=== PATIENT | male | born 1965 | race Caucasian/White ===

== ENCOUNTER 2024-12-05 16:55 | Emergency (ER) | payer OTHER, SELFPAY ==
[2024-12-05 16:58] VITALS: BP 100/72; PULSE 98; TEMP 36.4; O2SAT 97; BMI 21.0
--- NOTE | 2024-12-05 17:26 | ED.GENADUL1 ---
HPI HPI - General Adult General Chief complaint: Back Pain/Injury Stated complaint: LOWER BACK PAIN Time Seen by Provider: 12/05/24 16:57 Source: patient Mode of arrival: Wheelchair Limitations: no limitations History of Present Illness HPI narrative: 59-year-old male presents to the emergency department for lower back pain. He states he has had this for several days and there was no injury. He drinks alcohol on a daily basis. He has been using a heating pad and noticed that he has some sores in his right superior medial buttock area. He has never had shingles. No dysuria or hematuria. He had back surgery years ago. Related Data Previous Rx's ?Medication ?Instructions ?Recorded gabapentin 100 mg capsule 100 mg PO BID #20 caps 12/05/24 valacyclovir 1 gram tablet 1,000 mg PO Q8H 7 days #21 tabs 12/05/24 (Valtrex) Allergies Allergy/AdvReac Type Severity Reaction Status Date / Time No Known Drug Allergies Allergy Verified 12/05/24 17:01 Opioid HPI Opioid Management Most Recent Opioid Data: Last Pain Scale 8 12/05/24 17:50 12/05/24 Review of Systems ROS Narrative A ten point review of systems is negative except as noted above. PFSH PFSH Social History Little interest or pleasure in doing things: not at all Feeling down, depressed, or hopeless: not at all Exam Narrative Exam Narrative: Nurses note and vital signs reviewed and patient is not hypoxic. General: The patient appears in no apparent distress. Patient is unkempt. Skin: Warm, dry, no pallor noted. There are 3 erythematous areas of rash presents on the right superior medial buttock region. No drainage or abscess present. Head: Normocephalic, atraumatic Eye: Normal conjunctiva, no drainage Ears, Nose, Mouth, and Throat: oral mucosa is moist. Nares patent. Cardiovascular: Regular Rate and Rhythm Respiratory: Patient is in no distress, no accessory muscle use, lungs are clear to auscultation, no wheezing, rales or rhonchi Back: non-tender to palpation including the lumbar area GI: Soft and nontender Musculoskeletal: The patient has no evidence of calf tenderness, no pitting edema, symmetrical pulses noted bilaterally Neurological: A&O, normal speech Psychiatric: Cooperative Constitutional Vital Signs, click to edit/add: Last Vital Signs Temp 97.6 F 12/05/24 16:58 Pulse 105 H 12/05/24 21:00 Resp 20 12/05/24 21:00 BP 137/96 H 12/05/24 21:00 Pulse Ox 95 12/05/24 21:00 O2 Del Method Room Air 12/05/24 21:00 Course Course Hospital Course: Patient was given Tylenol 3 by my colleague. 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 I also endorsed that he has shingles. Patient received gabapentin 200 mg and Valtrex 1000 mg emergent Portillo. Vital Signs Vital signs: Vital Signs Temperature 97.6 F 12/05/24 16:58 Pulse Rate 98 H 12/05/24 16:58 Respiratory Rate 18 12/05/24 16:58 Blood Pressure 100/72 12/05/24 16:58 Pulse Oximetry 97 12/05/24 16:58 Oxygen Delivery Method Room Air 12/05/24 16:58 Temperature 97.6 F 12/05/24 16:58 Pulse Rate 105 H 12/05/24 21:00 Respiratory Rate 20 12/05/24 21:00 Blood Pressure 137/96 H 12/05/24 21:00 Pulse Oximetry 95 12/05/24 21:00 Oxygen Delivery Method Room Air 12/05/24 21:00 Medical Decision Making MDM Narrative Medical decision making narrative: I suspect that he has shingles due to the nature of the rash. X-ray and urinalysis are ordered and pending and the patient is signed out to Dr. Sultana at change of shift. Differential Diagnosis Differential Diagnosis: Muscle strain, shingles Discharge Plan Discharge Chief Complaint: Back Pain/Injury Clinical Impression: Shingles, Acute lumbar back pain, Neuropathy Patient Disposition: Home, Self-Care Time of Disposition Decision: 20:33 Condition: Good Prescriptions / Home Meds: New valacyclovir [Valtrex] 1 gram tablet 1,000 mg PO Q8H 7 Days Qty: 21 0RF gabapentin 100 mg capsule 100 mg PO BID Qty: 20 0RF Print Language: Luxembourgish Instructions: Shingles (ED), Acute Low Back Pain (ED), Peripheral Neuropathy (ED) Referrals: NASREEN MELÉNDEZ [Physician] - 1 week Discharge Date/Time: 12/05/24 21:00
[2024-12-05] MEDS: KETOROLAC TROMETHAMINE 60 MG/2 ML VIAL IM (17:44)
--- NOTE | 2024-12-05 17:45 | XR_ITS ---
The [address] [address] Patient Name: MARSHA BOLANOS MRN: [id number] date: 1965 Sex: M Assigned Patient Location: ED.MAIN Current Patient Location: ER Accession/Order Number: [id number] Exam Date: 12/05/2024 18:15 Report Date: 12/05/2024 19:34 At the request of: AAMIR BALDREAS Procedure: XR lumbar spine 2-3V EXAM: XR lumbar spine 2-3V HISTORY: The patient is a 59-year-old male, Atraumatic pain COMPARISON: None. FINDINGS: There is no radiographic evidence of fracture or loss of vertebral body height throughout the lumbar spine. There is no malalignment. The sacroiliac joints are maintained. There is severe narrowing of the L5-S1 disc and moderate narrowing of the L4-L5 discs. The widths of the upper lumbar discs are maintained. XR/XR lumbar spine 2-3V IMPRESSION: Degenerative disc disease of the lower lumbar spine. Electronically authenticated by: CHAPARRO HILL Date: 12/05/2024 19:34
[2024-12-05] MEDS: ACETAMINOPHEN 300 MG/ 30 MG CODEINE TABLET 1 TAB PO (19:04)
--- NOTE | 2024-12-05 20:23 | ED.GENADUL1 ---
HPI HPI - General Adult General Chief complaint: Back Pain/Injury Stated complaint: LOWER BACK PAIN Time Seen by Provider: 12/05/24 16:57 Source: patient Mode of arrival: Wheelchair Limitations: no limitations History of Present Illness HPI narrative: Gentleman is a 59-year-old male signed out to my colleague at 7 PM and I assumed care of the patient. Patient presented to the emergency department with left lower back pain. Has been using heating pad for it. Patient had lumbar x-ray series interpreted by board-certified radiologist and were found to be unremarkable. He was pending a urine but the patient has not urinated while he was in the emergency department. 20:43 I going to do a repeat physical exam on this patient. 1. The patient complains of his legs feeling like they are asleep. This has been going on for some time . Patient is known to drink alcohol. 2. Patient states that he has not had his prescriptions for his seizures or any of his other medical problems in greater than 3 months. He stated his primary care physician moved and he does not have a primary care practitioner. 3. Patient indicates he lives in chronic pain and uses alcohol to manage his pain. He has been using a heating pad on his back that has not helped. He states the pain is worse when he walks. Relieved by nothing. Related Data Previous Rx's ?Medication ?Instructions ?Recorded gabapentin 100 mg capsule 100 mg PO BID #20 caps 12/05/24 valacyclovir 1 gram tablet 1,000 mg PO Q8H 7 days #21 tabs 12/05/24 (Valtrex) Allergies Allergy/AdvReac Type Severity Reaction Status Date / Time No Known Drug Allergies Allergy Verified 12/05/24 17:01 Opioid HPI Opioid Management Most Recent Opioid Data: Last Pain Scale 8 12/05/24 17:50 12/05/24 Review of Systems ROS Status of ROS 10 or more systems reviewed and unremarkable except as noted in history and below PFSH PFSH Social History Little interest or pleasure in doing things: not at all Feeling down, depressed, or hopeless: not at all Exam Narrative Exam Narrative: I did a focused neurologic and skin assessment on the patient. The skin on the patient's left side around L5-S1 on the left side definitively there are 3 dried patches on a deep erythematous base. It was very painful to light touch. He is hyperesthetic in that area. No evidence of any fluctuance. No well-defined border of redness. Constitutional Vital Signs, click to edit/add: Last Vital Signs Temp 97.6 F 12/05/24 16:58 Pulse 98 H 12/05/24 16:58 Resp 18 12/05/24 16:58 BP 100/72 12/05/24 16:58 Pulse Ox 97 12/05/24 16:58 O2 Del Method Room Air 12/05/24 16:58 Neuro Ramón Coma Scale: document GCS findings Common normals: oriented x3, CN's II-XII intact bilaterally, moves all extremities, no focal motor deficits and deep tendon reflexes 2+ bilaterally Sensorium/orientation: awake, alert, oriented to person, oriented to place, oriented to time and other (Patient has admittedly drink alcohol but is highly functioning at this time) Meningeal signs: no meningeal signs Cranial nerves: CN normal except as noted Speech: speech normal Sensory exam: extremities (Patient is hyperesthetic in his distal lower extremities. Ascending improve) Motor exam: strength 5/5 throughout Deep tendon reflexes: Rt Patellar (L4): 2+, Lt Patellar (L4): 2+, Rt Ankle (S1): 2+ and Lt Ankle (S1): 2+ Course Course Hospital Course: Patient was given Tylenol 3 by my colleague. 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 I also endorsed that he has shingles. Patient received gabapentin 200 mg and Valtrex 1000 mg emergent Bandar. Vital Signs Vital signs: Vital Signs Temperature 97.6 F 12/05/24 16:58 Pulse Rate 98 H 12/05/24 16:58 Respiratory Rate 18 12/05/24 16:58 Blood Pressure 100/72 12/05/24 16:58 Pulse Oximetry 97 12/05/24 16:58 Oxygen Delivery Method Room Air 12/05/24 16:58 Temperature 97.6 F 12/05/24 16:58 Pulse Rate 98 H 12/05/24 16:58 Respiratory Rate 18 12/05/24 16:58 Blood Pressure 100/72 12/05/24 16:58 Pulse Oximetry 97 12/05/24 16:58 Oxygen Delivery Method Room Air 12/05/24 16:58 Medical Decision Making MDM Narrative Medical decision making narrative: Patient at this time needs to reestablish primary care. A list was provided for him. The patient will have his prescriptions for shingles and neuropathy called in. Differential Diagnosis Differential Diagnosis: Shingles, fracture, urinary tract infection, chronic pain, neuropathy Medical Records Medical records reviewed: Yes I reviewed the patient's medical records Lab Data Lab results reviewed: Yes I reviewed the patient's lab results Imaging Data Chest x-ray: Radiologist's impression: ITS Impressions Lumbar Spine X-Ray 12/05/24 17:45 IMPRESSION: Degenerative disc disease of the lower lumbar spine. Electronically authenticated by: CHAPARRO HILL Date: 12/05/2024 19:34 Discharge Plan Discharge Chief Complaint: Back Pain/Injury Clinical Impression: Shingles, Acute lumbar back pain, Neuropathy Patient Disposition: Home, Self-Care Time of Disposition Decision: 20:33 Condition: Good Prescriptions / Home Meds: New valacyclovir [Valtrex] 1 gram tablet 1,000 mg PO Q8H 7 Days Qty: 21 0RF gabapentin 100 mg capsule 100 mg PO BID Qty: 20 0RF Print Language: American Instructions: Shingles (ED), Acute Low Back Pain (ED), Peripheral Neuropathy (ED) Referrals: NASREEN MELÉNDEZ [Physician] - 1 week
[2024-12-05] MEDS: VALACYCLOVIR HCL 500 MG TABLET 1000 MG PO (20:50)
[2024-12-05] MEDS: GABAPENTIN 100 MG CAPSULE 200 MG PO (20:50)
[2024-12-05 21:00] VITALS: BP 137/96; PULSE 105; O2SAT 95
== END 2024-12-05 21:00 | disposition home or self-care (01) ==
PROVIDERS: Emergency Provider Emergency Medicine
DX: M54.50 Low back pain, unspecified (principal); B02.9 Zoster without complications; G62.9 Polyneuropathy, unspecified; M51.369 Other intervertebral disc degeneration, lumbar region without mention of lumbar back pain or lower extremity pain
CPT/HCPCS: 72100; 81001; 99284; J1885

== ENCOUNTER 2025-03-04 19:49 | Emergency (ER) | payer SELFPAY ==
[2025-03-04] VITALS (29 sets, daily range): BP systolic 138–158; BP diastolic 90–107; PULSE 102–143; TEMP 36.9; O2SAT 91–97; BMI 21.7
--- OUTSIDE RECORDS SUMMARY | 2025-03-04 19:57 | XMS_ITS | CCD ---
Author Organization [facility] Medications Current Medications Medication Drug Class(es) Dates Sig (Normalized) Sig (Original) folic acid 1 mg oral tablet (1 source) Start: 02-17-2024 take 1 mg by mouth once daily Folic Acid Active 1 MG PO Daily February 17, 2024 12:00am furosemide 40 mg oral tablet (1 source) Loop Diuretic Start: 02-17-2024 take 40 mg by mouth once daily Furosemide Active 40 MG PO Daily February 17, 2024 12:00am lactulose 667 mg/ml oral solution (1 source) Osmotic Laxative Start: 02-17-2024 take 10 g by mouth twice daily Lactulose (Constulose) 10 gram/15 mL solution Active 10 GM PO Twice daily February 17, 2024 12:00am phenytoin sodium 100 mg extended release oral capsule (1 source) Anti-epileptic Agent Start: 02-17-2024 Phenytoin Sodium Extended Active MG PO February 17, 2024 12:00am spironolactone 100 mg oral tablet (1 source) Aldosterone Antagonist Start: 02-17-2024 take 100 mg by mouth once daily Spironolactone Active 100 MG PO Daily February 17, 2024 12:00am Results Test Name Value Interpretation Reference Range Facility No Panel InformationOrdered By: Mary Harry on 02-17-2024 Quick Strep (POC) [facility] Coding Summaryon 07-27-2020 Coding Summary CODING DATE: 020 [facility] STATUS: Home PAYOR: Self Pay ADMIT DX: REASON FOR VISIT DX: R55 Syncope and collapse R56.9 Unspecified convulsions FINAL DX: PRINCIPAL: G40.909 Epilepsy, unspecified, not intractable, without status epilepticus SECONDARY: PYMT PROC APC STAT DESCRIPTION DOCTOR NAME DATE NOTE: The code number assigned matches the documented diagnosis and / or procedure in the patient's chart. However, the narrative phrase printed from the coding software may appear abbreviated, or result in slightly different terminology. Coded By: Eileen Zhang Date Saved: 07/27/2020 04:01 pm [facility] Coding Summary CODING DATE: 020 [facility] STATUS: Home PAYOR: Self Pay ADMIT DX: REASON FOR VISIT DX: R55 Syncope and collapse R56.9 Unspecified convulsions FINAL DX: PRINCIPAL: G40.909 Epilepsy, unspecified, not intractable, without status epilepticus SECONDARY: PYMT PROC APC STAT DESCRIPTION DOCTOR NAME DATE NOTE: The code number assigned matches the documented diagnosis and / or procedure in the patient's chart. However, the narrative phrase printed from the coding software may appear abbreviated, or result in slightly different terminology. Coded By: Eileen Zhang Date Saved: 07/27/2020 04:00 pm [facility] Ambulance Noteon 07-26-2020 Ambulance Note [id number] TIFF [facility] .Auto Diff 1on 07-25-2020 Auto Mower % 7 % Normal 1-12 [facility] Comment on above: Performed By: #### 1 [id number], [id number], [id number], 4050891, 29188328, 1933203, [id number] #### [facility] (DEFAULT) [address] [place] [address] 15882 Baso Abs# 0.0 x10 Normal 0.0-0.2 [facility] Comment on above: Performed By: #### 1 [id number], [id number], 6504362628, 8633348, 93915238, 7396179, [id number] #### [facility] (DEFAULT) [address] [place] [address] 02077 Basophils/100 WBC (Bld) 0.2 % Normal 0.2-2.0 [facility] Comment on above: Performed By: #### 1 [id number], [id number], 7602442083, 6480239, 92192953, 8942325, 6568321769 #### [facility] (DEFAULT) [address] [place] [address] 34870 Eos Abs# 0.0 x10 Normal 0.0-0.4 [facility] Comment on above: Performed By: #### 1 [id number], [id number], 3199403444, 9169983, 04727535, 7936724, 1475704017 #### [facility] (DEFAULT) [address] [place] [address] 94453 Eosinophils/100 WBC (Bld) 0.2 % Low 0.9-4.0 [facility] Comment on above: Performed By: #### 1 [id number], 1052931011, 0321101636, 1043378, 02006697, 7945219, 0215584581 #### [facility] (DEFAULT) [address] [place] [address] Lymphocytes (Bld) [#/Vol] 1.0 x10 Low 1.3-2.9 [facility] Comment on above: Performed By: #### 1 [id number], 4962399775, 3518114406, 0762532, 49210046, 9766730, 0778544704 #### [facility] (DEFAULT) [address] [place] [address] Lymphocytes/100 WBC (Bld) 11 % Low 14-48 [facility] Comment on above: Performed By: #### 1 [id number], 4766044206, 3548241853, 9341066, 10355627, 7615659, 1473058228 #### [facility] (DEFAULT) [address] [place] [address] Mower Abs# 0.7 x10 Normal 0.0-0.8 [facility] Comment on above: Performed By: #### 1 [id number], 2500730294, 6022012826, 7384360, 38464348, 6320721, 9814088552 #### [facility] (DEFAULT) [address] [place] [address] Neut Abs# 7.7 x10 Normal 1.5-9.2 [facility] Comment on above: Performed By: #### 1 [id number], 2266516936, 5065458152, 6313736, 91446377, 9536643, 4489688953 #### [facility] (DEFAULT) [address] [place] [address] Neutrophils/100 WBC (Bld) 82 % Normal 44-88 [facility] Comment on above: Performed By: #### 1 [id number], 1082609023, 1170028030, 8877879, 59946685, 9785173, 5486727604 #### [facility] (DEFAULT) [address] [place] [address] CBC w/ Auto Diffon 0 Erythrocyte distribution width (RBC) [Ratio] 14.7 % Normal 11.5-15.0 [facility] Comment on above: Performed By: #### 1 [id number], 3940471922, 9727488856, 2010246, 25167280, 4535365, 0298593324 #### [facility] (DEFAULT) [address] [place] [address] Hematocrit (Bld) [Volume fraction] 44.7 % Normal 34.8-51.9 [facility] Comment on above: Performed By: #### 1 [id number], 8310571628, 6181304316, 5278050, 27634011, 2120219, 0943886524 #### [facility] (DEFAULT) [address] [place] [address] Hemoglobin (Bld) [Mass/Vol] 14.9 g/dL Normal 11.8-17.7 [facility] Comment on above: Performed By: #### 1 [id number], 2168480090, 1601648633, 5412328, 47994731, 6504755, 9371557940 #### [facility] (DEFAULT) [address] [place] [address] Man Diff? Auto Normal [facility] Comment on above: Performed By: #### 1 [id number], 8209654523, 1056566178, 6665853, 47345928, 2955675, 0796582933 #### [facility] (DEFAULT) [address] [place] [address] MCH (RBC) [Entitic mass] 31 pg Normal 24-34 [facility] Comment on above: Performed By: #### 1 [id number], 9218365306, 8357857654, 1159043, 38496772, 0288305, 2836376870 #### [facility] (DEFAULT) [address] [place] [address] MCHC (RBC) [Mass/Vol] 33 g/dL Normal 26-37 [facility] Comment on above: Performed By: #### 1 [id number], 0495244436, 4330701867, 2553727, 23515604, 8334444, 2462516156 #### [facility] (DEFAULT) [address] [place] [address] MCV (RBC) [Entitic vol] 94 fL Normal 81-100 [facility] Comment on above: Performed By: #### 1 859390283, 1679982036, 4606341474, 9884108, 43249231, 3378047, 0203482111 #### [facility] (DEFAULT) [address] [place] [address] Platelet mean volume (Bld) [Entitic vol] 10.6 fL High 6.3-10.2 [facility] Comment on above: Performed By: #### 1 537385306, 6745820505, 8371065040, 6292066, 67439440, 2391136, 2176157843 #### [facility] (DEFAULT) [address] [place] [address] Platelets (Bld) [#/Vol] 200 x10 Normal 138-427 [facility] Comment on above: Performed By: #### 1 [id number], 9770859057, 3932999983, 6114979, 64275104, 2710523, 4588164573 #### [facility] (DEFAULT) [address] [place] [address] RBC (Bld) [#/Vol] 4.74 x10 Normal 3.70-5.30 [facility] Comment on above: Performed By: #### 1 [id number], 5011049442, 4685435549, 2956380, 89677551, 2647431, 3179296865 #### [facility] (DEFAULT) [address] [place] [address] 53132 WBC (Bld) [#/Vol] 9.4 x10 Normal 3.5-10.5 [facility] Comment on above: Performed By: #### 1 [id number], 0842211267, 5639285135, 5959987, 10894720, 2624423, 0624641405 #### [facility] (DEFAULT) [address] [place] [address] 96636 CMP Standardon 07-25-2020 eGFR Non AA >60 [facility] Comment on above: Performed By: #### 1 [id number], 7999750288, 6941347620, 1818132, 30034301, 1244272, 7087566133 #### [facility] (DEFAULT) [address] [place] [address] 24951 eGFR AA >60 [facility] Comment on above: Result Comment: Hospital Administrative Assistant pradip Kidney disease could be indicated at eGFRs of less than 60 ml/min/1.73m2. Kidney Failure is indicated at less than 15 ml/min/1.73m2 Performed By: #### 1 [id number], 9626071898, 5826488667, 8418240, 13452435, 9560798, 9536077047 #### [facility] (DEFAULT) [address] [place] [address] 77698 Albumin [Mass/Vol] 4.7 g/dL Normal 3.5-5.0 [facility] Comment on above: Performed By: #### 1 [id number], 2566021847, 7254182717, 1600022, 31636025, 0301161, 5243805440 #### [facility] (DEFAULT) [address] [place] [address] 70411 Albumin/Globulin [Mass ratio] 1.5 {ratio} Normal 1.4-2.6 [facility] Comment on above: Performed By: #### 1 [id number], 8603662379, 3978754135, 5060093, 80961955, 8257253, 4150463701 #### [facility] (DEFAULT) [address] [place] [address] 31148 Alk Phos 37 IU/L Normal 32-91 [facility] Comment on above: Performed By: #### 1 [id number], 0689673344, 3923741119, 4686504, 91622467, 9469941, 8040658576 #### [facility] (DEFAULT) [address] [place] [address] 74759 ALT/SGPT 21.0 IU/L Normal 17.0-63.0 [facility] Comment on above: Performed By: #### 1 [id number], 9406296305, 2938352512, 1442856, 01968403, 1748208, 3742480230 #### [facility] (DEFAULT) [address] [place] [address] 11420 Anion gap [Moles/Vol] 18.0 mmol/L Normal 5.0-19.0 [facility] Comment on above: Performed By: #### 1 [id number], 9293798103, 4527058762, 3005087, 02467308, 1664094, 8397054684 #### [facility] (DEFAULT) [address] [place] [address] 49177 AST/SGOT 39 IU/L Normal 15-41 [facility] Comment on above: Performed By: #### 1 [id number], 4640067386, 2531607195, 0715279, 15131822, 2004830, 0573881600 #### [facility] (DEFAULT) [address] [place] [address] 27834 Bili Total 1.0 mg/dL Normal 0.3-1.2 [facility] Comment on above: Performed By: #### 1 [id number], 0174723874, 2079845939, 6079258, 90411703, 8071098, 3937044080 #### [facility] (DEFAULT) [address] [place] [address] 84160 Calcium [Mass/Vol] 9.6 mg/dL Normal 8.9-10.3 [facility] Comment on above: Performed By: #### 1 164237646, 2661860142, 2003371679, 2373250, 41045835, 3214858, 9726661901 #### [facility] (DEFAULT) [address] [place] [address] 70458 Chloride [Moles/Vol] 97 mmol/L Low 101-111 [facility] Comment on above: Performed By: #### 1 [id number], 0804403265, 0160771466, 2558060, 51006979, 4747231, 8124198819 #### [facility] (DEFAULT) [address] [place] [address] 73902 CO2 [Moles/Vol] 25 mmol/L Normal 21-32 [facility] Comment on above: Performed By: #### 1 704894313, 2592192029, 4752178625, 3864803, 94484993, 3824324, 0251273828 #### [facility] (DEFAULT) [address] [place] [address] 74702 Creatinine [Mass/Vol] 0.83 mg/dL Low 0.90-1.30 [facility] Comment on above: Performed By: #### 1 [id number], 8953013414, 2427038960, 2111646, 47468273, 7824830, 0184851778 #### [facility] (DEFAULT) [address] [place] [address] 74372 Globulin (S) [Mass/Vol] 3.2 g/dL Normal 1.5-4.3 [facility] Comment on above: Performed By: #### 1 [id number], 3663392653, 0157516541, 3576909, 58373623, 1740836, 8583269357 #### [facility] (DEFAULT) [address] [place] [address] 74393 Glucose [Mass/Vol] 129.0 mg/dL High 74.0-118.0 [facility] Comment on above: Performed By: #### 1 [id number], 5177746173, 0790392927, 8268046, 57514591, 1823598, 8072360913 #### [facility] (DEFAULT) [address] [place] [address] 41689 Osmolality [Osmolality] 272 mOsm/L [facility] Comment on above: Performed By: #### 1 [id number], 5649202101, 3540008234, 3011423, 99368257, 8058672, 4586724167 #### [facility] (DEFAULT) [address] [place] [address] 45093 Potassium [Moles/Vol] 4.9 mmol/L Normal 3.6-5.1 [facility] Comment on above: Performed By: #### 1 [id number], 8625743197, 1927622587, 2837177, 36617259, 8805092, 1392083978 #### [facility] (DEFAULT) [address] [place] [address] 61010 Protein [Mass/Vol] 7.9 g/dL Normal 6.5-8.1 [facility] Comment on above: Performed By: #### 1 [id number], 1194446493, 5783246724, 1234067, 51594720, 3328657, 6563365251 #### [facility] (DEFAULT) [address] [place] [address] 52191 Sodium [Moles/Vol] 135.0 mmol/L Low 136.0-144.0 [facility] Comment on above: Performed By: #### 1 [id number], 3199464392, 2636489709, 7342958, 45351498, 1282863, 0569947411 #### [facility] (DEFAULT) [address] [place] [address] 95484 Urea nitrogen [Mass/Vol] 14 mg/dL Normal 8-26 [facility] Comment on above: Performed By: #### 1 [id number], 7374957328, 7513985432, 1281550, 65186326, 9649243, 5569301047 #### [facility] (DEFAULT) [address] [place] [address] 55999 Urea nitrogen/Creatinine [Mass ratio] 17.0 mg/mg High 4.6-16.2 [facility] Comment on above: Performed By: #### 1 [id number], 5486216659, 4878848837, 2541630, 60627046, 1067967, 1495330759 #### [facility] (DEFAULT) [address] [place] [address] ED Clinical Summaryon 2019 ED Clinical Summary [facility] - Emergency Department [address] [place] [address] 89383 ED Clinical Summary PERSON INFORMATION Name: ALAN DUMONT Age: 54 Years Sex: MALE : 1965 MRN: Acct#: Visit Reason: Syncope/Near syncope; POSS SEIZURES Arrival: 07/25/2020 09:49:05 Discharge: 07/25/2020 11:22:00 LOS: 000 01:33 Check In: 07/25/2020 09:49:05 Checkout:07/25/2020 11:22:00 Address: [address] [place] [address] PCP: Provider, None PROVIDER INFORMATION Provider Role Assigned Unassigned Teo Horne MD ED Provider 07/25/2020 09:55:13 Hayley RN, Maurice Peter ED Nurse 07/25/2020 10:02:10 VITALS INFORMATION Vital Sign Triage Latest Temperature Tympanic Temperature Temporal Artery Pulse Rate 109 bpm 109 bpm O2 Sat 100 % 100 % Respiratory Rate 18 br/min 18 br/min Blood Pressure /109 mmHg /109 mmHg MEDICAL INFORMATION Medications Given: Medication Dose Route lorazepam 1 mg PO phenytoin 300 mg PO Allergy Information: No known allergies PHYSICIAN DOCUMENTATION DISCHARGE INFORMATION: Discharge Disposition: Home Discharge Location: Home PATIENT EDUCATION INFORMATION Instructions: Seizure, Adult Follow-Up: With: Address: When: Shayne Jaramillouer [facility] [address] [place] [address] [facility] (1) Within 1 to 2 days Comments: Reviewed discharge care instruction. Continue with therapy as outlined by Dr. Horne. Take 300 mg Dilantin nightly. Observe restricted activity for seizure disorder as discussed Contact neurologist for follow-up within the recommended time. Return to ER for any worsening symptoms especially any symptom that concerns you. DIAGNOSIS: Epileptic seizure Patient Understands: Comment: Normal [facility] ED Note - Physicianon 2019 ED Note - Physician Patient: ELLIOTT DUMONT Age: 54 years Sex: MALE : 1965 Associated Diagnoses: Epileptic seizure Author: Teo Horne MD Basic Information Time seen: Date & time 07/25/2020 09:55:00. History source: Patient, EMS. Arrival mode: Ambulance. History limitation: Clinical condition. Additional information: Chief Complaint from Nursing Triage Note : Chief Complaint 07/25/2020 10:03 EDT Chief Complaint SYNCOPE/SEIZURE . History of Present Illness Presents with seizure. 54-year-old male brought into ER by EMS for evaluation of syncope, seizure. On arrival to ER, the patient was awake. Patient recalled that he was at work site. He stated that he then recalled that he was being loaded into the ambulance. He apparently had a seizure at work, as described by a witness. Patient did not have any further recollection. EMS reported that patient was at work. Appears to have a collapsed and generalized seizure, lasting 45 seconds. Patient appears to be postictal afterwards, confusion. Was not oriented to person place and situation. Postictal state lasted 15 minutes. On arrival, he was awake at this time. He did recall that he was feeling well in the last several days. Eating and drinking normally. No unusual events. No illness of any kind. He admitted that he does drink alcohol daily. Approximately 6-8 beers. He recall having some drinks last night. He stated that there is no change in the recent quantity of alcohol use. He related that he had a history of seizure. He thinks is been more than 10 years since he had a seizure. He related that he may have had some work-up and see neurologist. He stated that he stopped taking medication and stopped seeing neurologist due to health insurance reasons. He stated that he does not have health insurance. Related that he may have had hit the back of his head. Patient denies any headache any pain. 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 Review of Systems Constitutional symptoms: No fever, no chills. Skin symptoms: Negative except as documented in HPI. Eye symptoms: Vision unchanged. ENMT symptoms: No sore throat, no nasal congestion. Respiratory symptoms: No cough, Cardiovascular symptoms: No chest pain, Gastrointestinal symptoms: No abdominal pain, no vomiting, no diarrhea. Genitourinary symptoms: No dysuria, Musculoskeletal symptoms: No Muscle pain, no Joint pain. Neurologic symptoms: No headache, no dizziness. Psychiatric symptoms: No sleeping problems, Health Status Allergies: Allergic Reactions (Selected) No known allergies. Past Medical/ Family/ Social History Medical history: No active or resolved past medical history items have been selected or recorded., Reviewed as documented in chart. Surgical history: No active procedure history items have been selected or recorded., Reviewed as documented in chart. Family history: No family history items have been selected or recorded., Reviewed as documented in chart. Social history: Social & Psychosocial Habits Alcohol 07/25/2020 Alcohol Use: Current Frequency: Daily Substance Abuse 07/25/2020 Substance use: Past Type: Marijuana Tobacco 07/25/2020 Smoking tobacco use: 10 or more cigarettes (1/ Electronic Cigarette/Vaping 07/25/2020 Electronic Cigarette Use: Never , Reviewed as documented in chart. Problem list: No qualifying data available . Physical Examination Vital Signs Vital Signs 07/25/2020 10:03 EDT Temperature Temporal 36.9 DegC Peripheral Pulse Rate 109 bpm HI Respiratory Rate 18 br/min Systolic Blood Pressure 147 mmHg HI Diastolic Blood Pressure 109 mmHg HI SpO2 100 % Oxygen Therapy Room air . Measurements 07/25/2020 10:07 EDT Height/Length Dosing 182.900 cm Weight Dosing 74.800 kg 07/25/2020 10:03 EDT Height/Length Estimated 182.900 cm Weight Estimated 74.800 kg . General: Age-appropriate 54-year-old male, who is awake and alert. Able to answer questions although slightly poor in history. Somewhat vague. No signs of distress other than mild tachycardia.. Ramón coma scale: Total score: Total score: 15. Neurological: Alert and oriented to person, place, time, and situation, No focal neurological deficit observed, normal sensory observed, normal motor observed, normal speech observed, normal coordination observed. Skin: Warm, dry, intact, normal for ethnicity. Head: Normocephalic, atraumatic. Neck: Supple, no tenderness. Eye: Pupils are equal, round and reactive to light, extraocular movements are intact, normal conjunctiva. Cardiovascular: No murmur, Normal peripheral perfusion, No edema. Respiratory: Lungs are clear to auscultation, respirations are non-labored. Gastrointestinal: Soft, Nontender. Back: Normal range of motion. Musculoskeletal: Normal ROM, normal strength, no tenderness. Medical Decision Making Orders Launch Orders Laboratory: Magnesium Level (Order): Blood, Stat collect, 07/25/2020 10:22 EDT, Lab Collect CMP Standard (Order): Blood, Stat collect, 07/25/2020 10:22 EDT, Lab Collect CBC w/ Auto Diff (Order): Blood, Stat collect, 07/25/2020 10:21 EDT, Lab Collect Pharmacy: Dilantin (Order): 300 mg, PO, Once Ativan (Order): 1 mg, PO, Once. Results review: Lab results : Lab Flowsheet 07/25/2020 10:22 EDT Sodium Level 135.0 mmol/L LOW Potassium Level 4.9 mmol/L Chloride Level 97 mmol/L LOW CO2 25 mmol/L Anion Gap 18.0 mmol/L Glucose Level 129.0 mg/dL HI BUN 14 mg/dL Creatinine Level 0.83 mg/dL LOW BUN/Creat Ratio 17.0 HI eGFR AA >60 mL/min/1.73m2 NA eGFR Non AA >60 mL/min/1.73m2 NA Calcium Level 9.6 mg/dL Magnesium 1.89 mg/dL Bili Total 1.0 mg/dL Alk Phos 37 IU/L AST/SGOT 39 IU/L ALT/SGPT 21.0 IU/L Protein Total 7.9 gm/dL Albumin Level 4.7 gm/dL Globulin 3.2 gm/dL A/G Ratio 1.5 Osmolality 272 mOsm/L NA WBC 9.4 x103/mcL RBC 4.74 x106/mcL Hgb 14.9 gm/dL Hct 44.7 % MCV 94 fL MCH 31 pg MCHC 33 gm/dL RDW 14.7 % Platelet 200 x103/mcL MPV 10.6 fL HI Auto Neut % 82 % Auto Lymph % 11 % LOW Auto Mower % 7 % Auto Eos % 0.2 % LOW Auto Baso % 0.2 % Neut Abs# 7.7 x103/mcL Lymph Abs# 1.0 x103/mcL LOW Mower Abs# 0.7 x103/mcL Eos Abs# 0.0 x103/mcL Baso Abs# 0.0 x103/mcL Tube Collected Yes Tube Collected Yes Tube Collected Yes . Reexamination/ Reevaluation Patient remained stable in the emergency department. No further seizure episode. I have discussed with him regarding the finding on diagnostic work-up. Patient appears to have prior history of epilepsy. Not on medication. With the recurrence of seizure, I recommended starting back on medication and follow-up with neurology. I have discussed with the patient specifically regarding the activity which may be dangerous for himself or any other around him such as climbing on heights, swimming, working under potentially dangerous circumstance. He should refrain from these activity until he follows up with neurology for further evaluation, treatment and clearance. Patient was started on Dilantin 300 mg orally in the ER. Patient was instructed take an additional 300 mg at night as a loading. After that, may alternately take 100 mg 3 times a day or 300 mg once a day. Patient indicated understanding regarding treatment plans and follow-up Impression and Plan Diagnosis Epileptic seizure ([id number] G40.909, Discharge, Medical) Plan Condition: Improved, Stable. Disposition: Discharged: Time 07/25/2020 11:08:00, to home. Prescriptions: Launch prescriptions Pharmacy: Dilantin 100 mg oral capsule, extended release (Prescribe): 300 mg = 3 cap(s), PO, Once a day (at bedtime), 270 cap(s), 0 Refill(s). Patient was given the following educational materials: Seizure, Adult, Seizure, Adult. Follow up with: ; Shayne Mclean Within 1 to 2 days Reviewed discharge care instruction. Continue with therapy as outlined by Dr. Horne. Take 300 mg Dilantin nightly. Observe restricted activity for seizure disorder as discussed Contact neurologist for follow-up within the recommended time. Return to ER for any worsening symptoms especially any symptom that concerns you. . Counseled: Patient, Regarding diagnosis, Regarding diagnostic results, Regarding treatment plan, Regarding prescription, Patient indicated understanding of instructions. Orders: Launch Orders Miscellaneous Request: Excuse from Work/School (Order): 07/25/2020 11:12 EDT, Seen in ER for medical evaluation and treatment. May Return next shift. [Electronically Signed on: 07/25/2020 11:42 EDT] Teo Horne MD [Verified on: 07/25/2020 11:42 EDT] Teo Horne MD [facility] ED Note-Nursingon 07-25-2020 ED Note-Nursing PT ARRIVED IN ED VIA EMS AFTER A SYNCOPAL EPISODE W/ A REPORTED SEIZURE. U/A ARRIVAL PT WAS ALERT AND ORIENTED X4 BUT COULD NOT RECALL THE EVENT. CURRENTLY PT IS RESTING COMFORTABLY AFTER BEING MOVED INTO ED ROOM 5 ON EMS COT AND TRANSFERRED TO BED. [facility] ED Patient Education Noteon 07-25-2020 ED Patient Education Note Education Materials Neurology Seizure, Adult A seizure is a sudden burst of abnormal electrical activity in the brain. Seizures usually last from 30 seconds to 2 minutes. The abnormal activity temporarily interrupts normal brain function. A seizure can cause many different symptoms depending on where in the brain it starts. What are the causes? Common causes of this condition include: ? Fever or infection. ? Brain abnormality, injury, bleeding, or tumor. ? Low blood sugar. ? Metabolic disorders or other conditions that are passed from parent to child (are inherited). ? Reaction to a substance, such as a drug or a medicine, or suddenly stopping the use of a substance (withdrawal). ? Stroke. ? Developmental disorders such as autism or cerebral palsy. In some cases, the cause of this condition may not be known. Some people who have a seizure never have another one. Seizures usually do not cause brain damage or permanent problems unless they are prolonged. A person who has repeated seizures over time without a clear cause has a condition called epilepsy. What increases the risk? You are more likely to develop this condition if you have: ? A family history of epilepsy. ? Had a tonic-clonic seizure in the past. This is a type of seizure that involves whole-body contraction of muscles and a loss of consciousness. ? Autism, cerebral palsy, or other brain disorders. ? A history of head trauma, lack of oxygen at , or strokes. What are the signs or symptoms? There are many different types of seizures. The symptoms of a seizure vary depending on the type of seizure you have. Examples of symptoms during a seizure include: ? Uncontrollable shaking (convulsions). ? Stiffening of the body. ? Loss of consciousness. ? Head nodding. ? Staring. ? Not responding to sound or touch. ? Loss of bladder or bowel control. Some people have symptoms right before a seizure happens (aura) and right after a seizure happens (postictal). Symptoms before a seizure may include: ? Fear or anxiety. ? Nausea. ? Feeling like the room is spinning (vertigo). ? A feeling of having seen or heard something before (d?j? vu). ? Odd tastes or smells. ? Changes in vision, such as seeing flashing lights or spots. Symptoms after a seizure may include: ? Confusion. ? Sleepiness. ? Headache. ? Weakness on one side of the body. How is this diagnosed? This condition may be diagnosed based on: ? A description of your symptoms. Video of your seizures can be helpful. ? Your medical history. ? A physical exam. You may also have tests, including: ? Blood tests. ? CT scan. ? MRI. ? Electroencephalogram (EEG). This test measures electrical activity in the brain. An EEG can predict whether seizures will return (recur). ? A spinal tap (also called a lumbar puncture). This is the removal and testing of fluid that surrounds the brain and spinal cord. How is this treated? Most seizures will stop on their own in under 5 minutes, and no treatment is needed. Seizures that last longer than 5 minutes will usually need treatment. Treatment can include: ? Medicines given through an IV. ? Avoiding known triggers, such as medicines that you take for another condition. ? Medicines to treat epilepsy (antiepileptics), if epilepsy caused your seizures. ? Surgery to stop seizures, if you have epilepsy that does not respond to medicines. Follow these instructions at home: Medicines ? Take ijis-dvj-yoibwgd and prescription medicines only as told by your health care provider. ? Avoid any substances that may prevent your medicine from working properly, such as alcohol. Activity ? Do not drive, swim, or do any other activities that would be dangerous if you had another seizure. Wait until your health care provider says it is safe to do them. ? If you live in the [place] check with your local DMV (department of motor vehicles) to find out about local driving laws. Each state has specific rules about when you can legally return to driving. ? Get enough rest. Lack of sleep can make seizures more likely to occur. Educating others Teach friends and family what to do if you have a seizure. They should: ? Lay you on the ground to prevent a fall. ? Cushion your head and body. ? Loosen any tight clothing around your neck. ? Turn you on your side. If vomiting occurs, this helps keep your airway clear. ? Not hold you down. Holding you down will not stop the seizure. ? Not put anything into your mouth. ? Know whether or not you need emergency care. For example, they should get help right away if you have a seizure that lasts longer than 5 minutes or have several seizures in a row. ? Stay with you until you recover. General instructions ? Contact your health care provider each time you have a seizure. ? Avoid anything that has ever triggered a seizure for you. ? Keep a seizure diary. Record what you remember about each seizure, especially anything that might have triggered the seizure. ? Keep all follow-up visits as told by your health care provider. This is important. Contact a health care provider if: ? You have another seizure. ? You have seizures more often. ? Your seizure symptoms change. ? You continue to have seizures with treatment. ? You have symptoms of an infection or illness. This might increase your risk of having a seizure. Get help right away if: ? You have a seizure that: ? Lasts longer than 5 minutes. ? Is different than previous seizures. ? Leaves you unable to speak or use a part of your body. ? Makes it harder to breathe. ? You have: ? A seizure after a head injury. ? Multiple seizures in a row. ? Confusion or a severe headache right after a seizure. ? You do not wake up immediately after a seizure. ? You injure yourself during a seizure. These symptoms may represent a serious problem that is an emergency. Do not wait to see if the symptoms will go away. Get medical help right away. Call your local emergency services (911 in the [place] Do not drive yourself to the hospital. Summary ? Seizures are caused by abnormal electrical activity in the brain. The activity disrupts normal brain function and can cause various symptoms, such as convulsions, abnormal movements, or a change in consciousness. ? There are many causes of seizures, including illnesses, medicines, genetic conditions, head injuries, strokes, tumors, substance abuse, or substance withdrawal. ? Most seizures will stop on their own in under 5 minutes. Seizures that last longer than 5 minutes are a medical emergency and require immediate treatment. ? Many medicines are used to treat seizures. Take jefg-xjq-fvjdugb and prescription medicines only as told by your health care provider. This information is not intended to replace advice given to you by your health care provider. Make sure you discuss any questions you have with your health care provider. Document Released: 11/08/2001 Document Revised: 01/29/2020 Document Reviewed: 01/29/2020 Elsevier Patient Education ? 2019 [employer] Normal [facility] ED Patient Summaryon 020 ED Patient Summary [facility] - Emergency Department [address] [place] [address] PATIENT DISCHARGE INSTRUCTIONS Patient Information Name: ALAN DUMONT Age: 54 Years Date of : 1965 Reason For Visit: Syncope/Near syncope; POSS SEIZURES Arrival Time: 07/25/2020 09:49:05 Primary Care Physician: Provider, None Attending Physician: Teo Horne MD Comment: Visit Diagnosis: Diagnoses This Visit Epileptic seizure (G40.909) Syncope/Near syncope ([id number]) Prescription Information: If you have been given a prescription for narcotics, seek immediate medical attention if you have any difficulty breathing or any sudden status changes such as confusion and sleepiness. If you or anyone you know is experiencing suicidal thoughts, mental health, alcohol and/or drug addiction problems; contact the [facility] 17/06 Crisis Hotline -Text 4HQUD zm 606735. If you received any narcotics, sedation, or any other medication that causes drowsiness for the next 24 hours, unless otherwise directed: ? Do not drive a car. ? Do not operate machinery such as power tools, lawn mowers, drills, sewing machines, or stoves ? Avoid alcoholic beverages and drugs for allergies, nerves, or sleep ? Do not make important personal or business decisions or sign any legal documents With: Address: When: Shayne Mclean [address] [place] [id number] Business (1) Within 1 to 2 days Comments: Reviewed discharge care instruction. Continue with therapy as outlined by Dr. Horne. Take 300 mg Dilantin nightly. Observe restricted activity for seizure disorder as discussed Contact neurologist for follow-up within the recommended time. Return to ER for any worsening symptoms especially any symptom that concerns you. Medication Information: The exam and treatment you received today in the [facility] Emergency Department were for an urgent problem and are not intended as complete care. It is important for you to follow up with a doctor, nurse practitioner, or physician?s energy assistant for ongoing care. If your symptoms become worse or you do not improve as expected and you are unable to reach your usual health care provider, you should return to the Emergency Department, we are available 24 hours a day. For those patients who have received Radiology results, the interpretation of your X-ray as given to you by our Emergency Department physician is only a preliminary report. The Radiologist will review your films and if there is a change in the diagnosis you will be notified by phone. Please make sure you have provided a working phone number so we can reach you if necessary. In the event that you had a lab culture while you were a patient in the Emergency Department, you will be notified by phone if there is a need to change your antibiotic. Please make sure you have provided a working phone number so we can reach you if necessary. [facility] Emergency Department has provided you with a complete list of medications post discharge. Please inform your nuclear medicine tech/provider of your visit and for further instruction on these medications. Any specific questions regarding your chronic medications and dosages should be discussed with your primary care physician(s) and/or pharmacist. New Medications Printed Prescriptions phenytoin (Dilantin 100 mg oral capsule, extended release) 3 cap(s) Oral once a day (at bedtime). Refills: 0. Visit Information Allergies: Substance Reaction Symptoms Type Comments No known allergies Drug Vital Signs: Vitals and Measurements this Visit (last charted value for your 07/25/2020 visit) Vital Signs This Visit Temperature Temporal: 36.9 DegC Peripheral Pulse Rate: 109 bpm Respiratory Rate: 18 br/min Systolic Blood Pressure: 147 mmHg Diastolic Blood Pressure: 109 mmHg SpO2: 100 % Oxygen Therapy: Room air Measurements This Visit Height/Length Dosin.900 cm Height/Length Estimated: 182.900 cm Weight Dosin.800 kg Weight Estimated: 74.800 kg Problems List: Problem Onset Comments No Problems found Patient Education Seizure, Adult A seizure is a sudden burst of abnormal electrical activity in the brain. Seizures usually last from 30 seconds to 2 minutes. The abnormal activity temporarily interrupts normal brain function. A seizure can cause many different symptoms depending on where in the brain it starts. What are the causes? Common causes of this condition include: ? Fever or infection. ? Brain abnormality, injury, bleeding, or tumor. ? Low blood sugar. ? Metabolic disorders or other conditions that are passed from parent to child (are inherited). ? Reaction to a substance, such as a drug or a medicine, or suddenly stopping the use of a substance (withdrawal). ? Stroke. ? Developmental disorders such as autism or cerebral palsy. In some cases, the cause of this condition may not be known. Some people who have a seizure never have another one. Seizures usually do not cause brain damage or permanent problems unless they are prolonged. A person who has repeated seizures over time without a clear cause has a condition called epilepsy. What increases the risk? You are more likely to develop this condition if you have: ? A family history of epilepsy. ? Had a tonic-clonic seizure in the past. This is a type of seizure that involves whole-body contraction of muscles and a loss of consciousness. ? Autism, cerebral palsy, or other brain disorders. ? A history of head trauma, lack of oxygen at , or strokes. What are the signs or symptoms? There are many different types of seizures. The symptoms of a seizure vary depending on the type of seizure you have. Examples of symptoms during a seizure include: ? Uncontrollable shaking (convulsions). ? Stiffening of the body. ? Loss of consciousness. ? Head nodding. ? Staring. ? Not responding to sound or touch. ? Loss of bladder or bowel control. Some people have symptoms right before a seizure happens (aura) and right after a seizure happens (postictal). Symptoms before a seizure may include: ? Fear or anxiety. ? Nausea. ? Feeling like the room is spinning (vertigo). ? A feeling of having seen or heard something before (d?j? vu). ? Odd tastes or smells. ? Changes in vision, such as seeing flashing lights or spots. Symptoms after a seizure may include: ? Confusion. ? Sleepiness. ? Headache. ? Weakness on one side of the body. How is this diagnosed? This condition may be diagnosed based on: ? A description of your symptoms. Video of your seizures can be helpful. ? Your medical history. ? A physical exam. You may also have tests, including: ? Blood tests. ? CT scan. ? MRI. ? Electroencephalogram (EEG). This test measures electrical activity in the brain. An EEG can predict whether seizures will return (recur). ? A spinal tap (also called a lumbar puncture). This is the removal and testing of fluid that surrounds the brain and spinal cord. How is this treated? Most seizures will stop on their own in under 5 minutes, and no treatment is needed. Seizures that last longer than 5 minutes will usually need treatment. Treatment can include: ? Medicines given through an IV. ? Avoiding known triggers, such as medicines that you take for another condition. ? Medicines to treat epilepsy (antiepileptics), if epilepsy caused your seizures. ? Surgery to stop seizures, if you have epilepsy that does not respond to medicines. Follow these instructions at home: Medicines ? Take gaih-vec-amlswjq and prescription medicines only as told by your health care provider. ? Avoid any substances that may prevent your medicine from working properly, such as alcohol. Activity ? Do not drive, swim, or do any other activities that would be dangerous if you had another seizure. Wait until your health care provider says it is safe to do them. ? If you live in the [place] check with your local DMV (department of motor vehicles) to find out about local driving laws. Each state has specific rules about when you can legally return to driving. ? Get enough rest. Lack of sleep can make seizures more likely to occur. Educating others Teach friends and family what to do if you have a seizure. They should: ? Lay you on the ground to prevent a fall. ? Cushion your head and body. ? Loosen any tight clothing around your neck. ? Turn you on your side. If vomiting occurs, this helps keep your airway clear. ? Not hold you down. Holding you down will not stop the seizure. ? Not put anything into your mouth. ? Know whether or not you need emergency care. For example, they should get help right away if you have a seizure that lasts longer than 5 minutes or have several seizures in a row. ? Stay with you until you recover. General instructions ? Contact your health care provider each time you have a seizure. ? Avoid anything that has ever triggered a seizure for you. ? Keep a seizure diary. Record what you remember about each seizure, especially anything that might have triggered the seizure. ? Keep all follow-up visits as told by your health care provider. This is important. Contact a health care provider if: ? You have another seizure. ? You have seizures more often. ? Your seizure symptoms change. ? You continue to have seizures with treatment. ? You have symptoms of an infection or illness. This might increase your risk of having a seizure. Get help right away if: ? You have a seizure that: ? Lasts longer than 5 minutes. ? Is different than previous seizures. ? Leaves you unable to speak or use a part of your body. ? Makes it harder to breathe. ? You have: ? A seizure after a head injury. ? Multiple seizures in a row. ? Confusion or a severe headache right after a seizure. ? You do not wake up immediately after a seizure. ? You injure yourself during a seizure. These symptoms may represent a serious problem that is an emergency. Do not wait to see if the symptoms will go away. Get medical help right away. Call your local emergency services (911 in the [place] Do not drive yourself to the hospital. Summary ? Seizures are caused by abnormal electrical activity in the brain. The activity disrupts normal brain function and can cause various symptoms, such as convulsions, abnormal movements, or a change in consciousness. ? There are many causes of seizures, including illnesses, medicines, genetic conditions, head injuries, strokes, tumors, substance abuse, or substance withdrawal. ? Most seizures will stop on their own in under 5 minutes. Seizures that last longer than 5 minutes are a medical emergency and require immediate treatment. ? Many medicines are used to treat seizures. Take vehr-pzi-qdtikqj and prescription medicines only as told by your health care provider. This information is not intended to replace advice given to you by your health care provider. Make sure you discuss any questions you have with your health care provider. Document Released: 11/08/2001 Document Revised: 01/29/2020 Document Reviewed: 01/29/2020 [employer] Patient Education ? 2019 [employer] Viruses or Bacteria What?s got you sick? Antibiotics only treat bacterial infections. Viral illnesses cannot be treated with antibiotics. When an antibiotic is not prescribed, ask your healthcare professional for tips on how to relieve symptoms and feel better. Usual Cause Illness Viruses Bacteria Antibiotic Needed Cold/Runny Nose NO Bronchitis/Chest Cold (in otherwise healthy children and adults) NO Whooping Cough Yes Flu NO Strep Throat Yes Sore Throat (except strep) NO Fluid in the middle ear (otitis media with effusion) NO Urinary Tract Infection Yes Antibiotics Aren?t Always the Answer www.cdc.gov/getsmart GET SMART Know When Antibiotics Work [place] Department of Health and Human Services Centers for Disease Control and Prevention July 2014 Normal [facility] Extra Greenon 07-25-2020 Tube Collected Yes [facility] Comment on above: Performed By: #### 1 [id number] #### [facility] (DEFAULT) [address] [place] [id number] Magnesiumon 07-25-2020 Magnesium [Mass/Vol] 1.89 mg/dL Normal 1.80-2.50 [facility] Comment on above: Performed By: #### 1 [id number] #### [facility] (DEFAULT) [address] [place] [id number] Vital Signs Date Time Vital Sign Value Performing Clinician Eunice sewell 02-17-2024 11:040 Body height 182.88 cm [facility] 02-17-2024 11:25040 Body mass index (BMI) [Ratio] 20.5 kg/m2 [facility] 02-17-2024 11:25040 Body temperature 98.8 [degF] [facility] 02-17-2024 11:25040 Body weight 68.6 kg [facility] 02-17-2024 11:25-040 Heart rate 95 /min [facility] 02-17-2024 11:25040 Respiratory rate 18 /min [facility] 02-17-2024 11:25-040 SaO2% (BldA) [Mass fraction] 99 % [facility] Encounters Encounter Date Encounter Type Care Provider Facility Start: 02-17-2024 End: 02-17-2024 ambulatory [facility] Work Phone: Start: 02-17-2024 End: 02-17-2024 Patient encounter procedure [facility] Work Phone: Procedures Date Procedure Procedure Detail Performing Clinician Start: 02-17-2024 Quick Strep (POC) Payers Date Payer Category Payer Policy ID Medicaid [place] [id number] Unknown [id number] Social History Date Type Detail Facility Start: 02-17-2024 Tobacco smoking stat [facility] Smoker (finding) [facility] Start: 1965 Sex Assigned At Male F [facility] Evaluation note Note Date & Type Note Facility Evaluation note No assessment information availa ble [facility] Work Phone: Summary Purpose Family History No Family History Records Found Advance Directives Advance Directive Response Recorded Date/ Time Advance Directives No February 16 024 10:20am Chief Complaint and Reason for Visit Chief Complaint Sore throat Additional Source Comments (unrecognized sect ion and content) No Status Records Found INFORMATION SOURCE (unrecogn ized section and content) DATE CREATED AUTHOR 07/27/2020 [facility] Care Teams (unrecognized sec tion and content) Team Status: Active Member Role Status Dates Remberto Harris DO Primary Care Provider Active Team Status: Inactive Member Role Status Dates Mary Harry APRN Attending Provider Active S tart: February 17, 2024 End: February 17, 2024 Remberto Harris DO Primary Care Provider Active Start: February 17, 2024 End: February 17, 2024 Goals (unrecognized section and content) Goals may be documented in a n alternate section FOR RECORDS PERTAINING TO PATIENTS WHO ARE OR HAVE BEEN ENROLLED IN A CHEMICAL DEPENDENCY/SUBSTANCEABUSE PROGRAM, SOME INFORMATION MAY BE OMITTED. This clinical summary was aggregated from multiple sources. Caution should be exercised in using it in the provision of clinical care. This summary normalizes information from multiple sources, and as a consequence, information in this document may materially change the coding, format and clinical context of patient data. In addition, data may be omitted in some cases. CLINICAL DECISIONS SHOULD BE BASED ON THE PRIMARY CLINICAL RECORDS. [facility]. provides no warranty or guarantee of the accuracy or completeness of information in this document.
--- NOTE | 2025-03-04 20:12 | ED.GENADUL1 ---
HPI HPI - General Adult General Chief complaint: GI Bleed Stated complaint: vomitting blood/clots Time Seen by Provider: 03/04/25 19:56 Source: patient Mode of arrival: Wheelchair History of Present Illness HPI narrative: Patient is a 59-year-old male who is presenting to the ER with chief complaint of 8-10 episodes of bloody/coffee-ground emesis with intermittent clots throughout the day. Patient has no history of upper GI bleed, gastric or peptic ulcers. Patient has a long history of alcohol abuse since he was 18 years old. Patient has drink significant amount of initially beer, then beer and liquor in his 20s and 30s and 40s, then beer in his 50s. Patient states he is down to 2 beers a day. Patient does not feel that he is going through withdrawal. Patient has known liver disease. Patient stated he had paracentesis approximately 2 or 3 years ago at [facility]. Patient has never had EGD or colonoscopy. Patient girlfriend is at bedside. Patient is clammy, not diaphoretic. Patient has not been told he has cirrhosis. Patient states he has had 3 seizures in his lifetime, he does not believe they are related to alcohol. Patient's PCP was Dr. Harris. He moved to [place]. Patient's PCP is now currently Dr. Sorensen. Patient has no GI physician. Patient lives in [place]. Patient's been having intermittent black stool as well. All systems are negative except as noted/marked. All systems reviewed and otherwise negative. Nurses note and vital signs reviewed and patient is not hypoxic. General: The patient appears mild distress secondary to not feeling well. Patient is resting uncomfortably on cart. Patient is not toxic, lethargic, or listless Skin: Warm, clammy, no pallor noted. There is no rash noted. No petechiae, purpura. Head: Normocephalic, atraumatic Eye: Normal conjunctiva, no drainage, EOMI. PERRL Ears, Nose, Mouth, and Throat: oral mucosa is very dry. Nares patent. Mouth without vesicles. Cardiovascular: Regular Rate and Rhythm, no murmur, gallop, rub Respiratory: Patient is in no distress, no accessory muscle use, lungs are clear to auscultation, no wheezing, rales or rhonchi Back: non-tender, no CVA tenderness bilaterally to percussion. No CT LS midline pain GI: Minimal midepigastric tenderness to palpation, no tenderness to palpation, no masses appreciated. No rebound, guarding, or rigidity noted. No distention. No peritoneal signs. No right upper quadrant tenderness palpation. No flank pain bilateral Musculoskeletal: Patient has full range of motion of all of the extremities, no motor, sensory, or focal neurological deficits Neurological: A&O x4, normal speech Psychiatric: Cooperative Related Data Home Medications ?Medication ?Instructions ?Recorded ?Confirmed diclofenac sodium 75 mg mg PO 03/04/25 tablet,delayed release tizanidine 4 mg tablet mg 03/04/25 Previous Rx's ?Medication ?Instructions ?Recorded ondansetron 4 mg disintegrating 4 mg PO Q4H PRN nausea and 03/05/25 tablet vomiting 3 days #8 tabs pantoprazole 20 mg tablet,delayed 20 mg PO DAILY #20 tabs 03/05/25 release (Protonix) Allergies Allergy/AdvReac Type Severity Reaction Status Date / Time No Known Drug Allergies Allergy Verified 03/04/25 19:57 Opioid HPI Opioid Management Most Recent Opioid Data: Last Pain Scale 8 12/05/24 17:50 12/05/24 PFSH PFSH Social History Little interest or pleasure in doing things: not at all Feeling down, depressed, or hopeless: not at all Exam Constitutional Vital Signs, click to edit/add: Last Vital Signs Temp 98.4 F 03/04/25 19:58 Pulse 126 H 03/05/25 00:00 Resp 23 H 03/05/25 00:00 BP 138/102 H 03/04/25 21:49 Pulse Ox 96 03/05/25 00:00 O2 Del Method Room Air 03/04/25 19:58 Course Vital Signs Vital signs: Vital Signs Blood Pressure 158/107 H 03/04/25 19:56 Temperature 98.4 F 03/04/25 19:58 Pulse Rate 126 H 03/05/25 00:00 Respiratory Rate 23 H 03/05/25 00:00 Blood Pressure 138/102 H 03/04/25 21:49 Pulse Oximetry 96 03/05/25 00:00 Oxygen Delivery Method Room Air 03/04/25 19:58 Medical Decision Making [facility] Narrative Medical decision making narrative: Patient seen and examined: Patient is clammy, most likely upper GI bleed, alcohol dependence, patient states he is not going through withdrawal. Differential diagnosis includes but is not limited to: Upper GI bleed, esophageal varices, cholecystitis, peptic ulcer, duodenal ulcer, flulike symptoms, [place], mesenteric ischemia Diagnostics and management: Patient will have laboratory studies Relevant laboratory interpretation: Patient H&H is 18/56. CO2 35, BUN and creatinine are 14/1.1. Lactate is 4.3. Radiological studies: Please see the formal radiological report. Chest x-ray shows no significant acute abnormality. Reevaluation: 2299 patient was reevaluated again. Patient's heart rate went to the 140s when he had a lactic drawn again, and then once nursing staff stepped out, his heart rate went down to the 1 teens. Patient does not want to be admitted to the hospital or transfer. Patient wants to go home. Patient understands the importance of following up with GI. Patient has been tolerating ice water does given to him at 9:45 PM and again with no difficulty, no vomiting. Reevaluation: 2144 patient was reevaluated. Patient feels significantly better, patient has not had any additional vomiting since he initially arrived in the ER. Patient tolerated his initial ice chips well, patient is begging for ice water patient's lab levels show hemoconcentration, patient's heart rate has improved from the 140s down to the 1 teens. Patient H&H is 18/56. CO2 35, BUN and creatinine are 14/1.1. Lactate is 4.3. Magnesium is 1.5. Total bilirubin 1.6 AST to ALT is 46/44. Alk phos 156. Shared decision makin I discussed with the patient the necessary laboratory findings and radiological findings. Chest x-ray shows no significant findings. Recommendation was admission to the hospital or transfer to another facility that has GI capabilities and EGD/colonoscopy and additional capabilities for upper GI bleed. Patient has not had any bleeding, clots, or any vomiting since he arrived to the ER. Patient was given 3 L of IV fluid, 2 L of normal saline and 1 L lactated Ringer's. Patient was given magnesium replacement. Patient was given IV Protonix and IV Zofran/Compazine. Patient has been drinking ice water for the past 3 hours with no difficulty. No vomiting. Patient does not want to be admitted to the hospital or transfer despite my early recommendations when patient arrived and at discharge secondary to tachycardia. Shared decision making was done. Risk and benefits were discussed. Patient understands we have no GI capabilities currently at [facility]. Patient would like to go home. Patient has been to [facility] before for GI evaluation and paracentesis 2 to 3 years ago. Patient is opting to go home, does not want to be admitted to the hospital or transfer. Patient understands that he can return if bleeding or vomiting occurs again. Patient feels comfortable going home. Patient is still slightly tachycardic going home and he is aware of this. He has no chest pain or shortness of breath at discharge. He is not lightheaded or dizzy. Patient has no other questions at discharge. Dependence on alcohol and marijuana was discussed as well. Social barriers to healthcare: There are no food insecurities, there is no issue with transportation, there are no insurance barriers. Disposition: I discussed with the patient the recommendations of admission, transfer, versus his desire to be discharged. Critical care time 50 minutes exclusive from separate billable procedures that were performed. The following was considered in the determination of critical care but not limited to the level of medical decision making, intensive cardiac and/or respiratory monitoring, frequent vital sign monitoring, evaluation of laboratory studies, evaluation of radiographic studies, oxygen monitoring, and constant monitoring and speaking to family at bedside Lab Data Labs: Lab Results 03/04/25 03/04/25 Range/Units 20:14 22:05 WBC 10.1 (4.0-11.0) 10^3/uL RBC 6.13 H (4.70-6.10) 10^6/uL Hgb 18.9 H (14.0-18.0) g/dL Hct 56.9 H (42.0-54.0) % MCV 92.8 (80.0-94.0) fL MCH 30.8 (25.9-34.0) pg MCHC 33.2 (29.9-35.2) g/dL RDW 16.1 H (11.0-15.0) % Plt Count 175 (150-450) 10^3/uL MPV 12.1 (9.5-13.5) fL Neut % (Auto) 74.3 (43.0-75.0) % Lymph % (Auto) 13.7 L (20.5-60.0) % Nelson % (Auto) 10.3 (1.7-12.0) % Eos % (Auto) 1.0 (0.9-7.0) % Baso % (Auto) 0.3 (0.2-2.0) % Neut # (Auto) 7.5 H (1.4-6.5) 10^3/uL Lymph # (Auto) 1.4 (1.2-3.8) 10^3/uL Nelson # (Auto) 1.0 H (0.3-0.8) 10^3/uL Eos # (Auto) 0.1 (0.0-0.7) 10^3/uL Baso # (Auto) 0.0 (0.0-0.1) 10^3/uL Abs Immat Gran (auto) 0.04 H (0.00-0.03) 10^3/uL Imm/Tot Granulo (auto) 0.4 (0.0-0.5) % PT 12.3 H (9.0-11.6) sec INR 1.18 APTT 25.9 (22.3-36.2) sec Sodium 144 (136-145) mmol/L Potassium 3.5 (3.5-5.1) mmol/L Chloride 98 (98-107) mmol/L Carbon Dioxide 35.6 H (21.0-32.0) mmol/L Anion Gap 13.9 BUN 14.0 (7.0-18.0) mg/dL Creatinine 1.12 (0.70-1.30) mg/dL Est GFR ( Amer) >60 (>=60 mL/min/1.73m^2) Est GFR (Non-Af Amer) >60 (>=60 mL/min/1.73m^2) BUN/Creatinine Ratio 12.5 Glucose 129 H (74-106) mg/dL Lactate 4.3 H* 2.3 H* (0.4-2.0) mmol/L Calcium 9.3 (8.5-10.1) mg/dL Magnesium 1.5 L (1.8-2.4) mg/dL Total Bilirubin 1.6 H (0.2-1.0) mg/dL AST 46 H (15-37) U/L ALT 44 (16-63) U/L Alkaline Phosphatase 156 H (46-116) U/L Troponin I High Sens 11.4 (4.0-76.1) pg/mL Total Protein 7.4 (6.4-8.2) g/dL Albumin 3.3 L (3.4-5.0) g/dL Globulin 4.1 g/dL Albumin/Globulin Ratio 0.8 Lipase 14.0 L (16.0-77.0) U/L Blood Type A Positive Antibody Screen Negative ECG Data Attestation: I personally reviewed and interpreted this ECG as follows: (EKG interpretation. Sinus tachycardia at 118, normal axis deviation. No acute ST elevation, no acute ectopy. QTc of 400. Artifact seen. QRS 78.) Discharge Plan Discharge Chief Complaint: GI Bleed Clinical Impression: Acute upper GI bleeding, Gastritis, Dehydration, Alcohol dependence, Marijuana use, Hypomagnesemia Patient Disposition: Home, Self-Care Time of Disposition Decision: 00:15 Condition: Fair Prescriptions / Home Meds: New pantoprazole [Protonix] 20 mg tablet,delayed release (DR/EC) 20 mg PO DAILY Qty: 20 0RF ondansetron 4 mg tablet,disintegrating 4 mg PO Q4H PRN (Reason: nausea and vomiting) 3 Days Qty: 8 0RF No Action tizanidine 4 mg tablet diclofenac sodium 75 mg tablet,delayed release (DR/EC) PO Print Language: Dominican Instructions: Gastritis (ED), Gastrointestinal Bleeding (ED), Dehydration (ED), Cannabis Use Disorder (ED), Hypomagnesemia (ED), Alcohol Dependence (ED) Additional Instructions: It is recommended to be admitted to the hospital and transferred to another hospital to have GI evaluation done for upper GI bleed. Shared decision making was done at bedside, you have opted to be discharged and follow-up as an outpatient with a GI specialist. Call your PCP tomorrow, Dr. Sorensen to help with assistance and referral to GI physician. You have been prescribed Protonix to take daily to help with acid reflux and upper GI bleed. Limit alcohol use and marijuana use along with caffeine use as well. 2 different GI physicians from [facility] has been given to you for follow-up as well; Dr Woodward and Dr Ferraro. If you are having return of progressing GI bleed, vomiting blood, clots, or any other acute concerns, return back to the ER for reevaluation. Increase fluids of Gatorade, Powerade, water. Referrals: OLENA FERRARO [Physician] - 1 week Physician,Non-Staff, [Primary Care Provider] - 1 week Shasha Woodward DO [Physician] - 1 week
[2025-03-04] MEDS: 0.9 % SODIUM CHLORIDE 1,000 ML 999 ML IV (20:15)
--- NOTE | 2025-03-04 20:24 | ECG_ITS ---
[facility] Test Date: 2025-03-04 Pat Name: MARSHA BOLANOS Department: Room: - Gender: Male Academic Advising Director: : [id number] Requested By: [id number] Order Number: [id number] Reading MD: MC FLORES M.D. Measurements Intervals [place] Rate: 118 P: 40 OR: 138 QRS: 97 QRSD: 78 T: 65 QT: 330 QTc: 400 Interpretive Statements 1120 Sinus tachycardia 1470 with occasional supraventricular premature complexes 7102 Moderate right axis deviation Nonspecific ST abnormalities abnormal ECG No prior ECG available for comparison Electronically Signed On 03-05-2025 5:27:44 EDT by MC FLORES M.D.
[2025-03-04 20:34] LABS: Basophils Percent Auto 0.3 % (0.2-2.0); Eosinophils Absolute Auto 0.1 10^3/uL (0.0-0.7); Hematocrit 56.9 % (42.0-54.0); Hemoglobin 18.9 g/dL (14.0-18.0); Immature Granulocytes Abs Auto 0.04 10^3/uL (0.00-0.03); Immature Granulocytes Pct Auto 0.4 % (0.0-0.5); Lymphocytes Absolute Auto 1.4 10^3/uL (1.2-3.8); Lymphocytes Percent Auto 13.7 % (20.5-60.0); Mean Corpuscular HGB Conc 33.2 g/dL (29.9-35.2); Mean Corpuscular Hemoglobin 30.8 pg (25.9-34.0); Mean Corpuscular Volume 92.8 fL (80.0-94.0); Mean Platelet Volume 12.1 fL (9.5-13.5); Monocytes Percent Auto 10.3 % (1.7-12.0); Neutrophils Absolute Auto 7.5 10^3/uL (1.4-6.5); Neutrophils Percent Auto 74.3 % (43.0-75.0); Platelet Count 175 10^3/uL (150-450); Red Blood Count 6.13 10^6/uL (4.70-6.10); Red Cell Distribution Width 16.1 % (11.0-15.0); White Blood Count 10.1 10^3/uL (4.0-11.0)
[2025-03-04] MEDS: PANTOPRAZOLE SODIUM 40 MG VIAL IV (20:41)
[2025-03-04] MEDS: ONDANSETRON PF 4 MG/2 ML VIAL IV (20:43)
[2025-03-04] MEDS: PROCHLORPERAZINE 10 MG/2 ML VIAL IV (20:45)
[2025-03-04 20:49] LABS: INR 1.18; Partial Thromboplastin Time 25.9 sec (22.3-36.2); Prothrombin Time 12.3 sec (9.0-11.6)
[2025-03-04 20:54] LABS: Alanine Aminotransferase 44 U/L (16-63); Albumin Globulin Ratio 0.8; Albumin Level 3.3 g/dL (3.4-5.0); Alkaline Phosphatase 156 U/L (46-116); Anion Gap 13.9; Aspartate Amino Transferase 46 U/L (15-37); BUN Creatinine Ratio 12.5; Bilirubin Total 1.6 mg/dL (0.2-1.0); Calcium 9.3 mg/dL (8.5-10.1); Carbon Dioxide 35.6 mmol/L (21.0-32.0); Chloride 98 mmol/L (98-107); Estimated GFR (African America >60 (>=60 mL/min/1.73m^2); Estimated GFR (Non-African Ame >60 (>=60 mL/min/1.73m^2); Globulin 4.1 g/dL; Glucose 129 mg/dL (74-106); Magnesium 1.5 mg/dL (1.8-2.4); Potassium 3.5 mmol/L (3.5-5.1); Sodium 144 mmol/L (136-145); Total Protein 7.4 g/dL (6.4-8.2); Troponin I High Sensitivity 11.4 pg/mL (4.0-76.1)
[2025-03-04 21:12] LABS: Lactate/Lactic Acid 4.3 mmol/L (0.4-2.0)
[2025-03-04] MEDS: 0.9 % SODIUM CHLORIDE 1,000 ML 1000 ML IV (21:22)
[2025-03-04] MEDS: MAGNESIUM SULFATE IN WATER 2 GM/50 ML PREMIX 3.3 GM IV (21:43)
[2025-03-04] MEDS: LACTATED RINGER'S SOLUTION 1,000 ML 1000 ML IV (23:11)
[2025-03-04 23:37] LABS: Lactate/Lactic Acid 2.3 mmol/L (0.4-2.0)
[2025-03-05] VITALS: PULSE 126; O2SAT 96
[2025-03-05 00:25] VITALS: BP 128/80; PULSE 112; O2SAT 98
== END 2025-03-05 00:30 | disposition home or self-care (01) ==
PROVIDERS: Emergency Provider Emergency Medicine
DX: K29.71 Gastritis, unspecified, with bleeding (principal); K76.9 Liver disease, unspecified; E86.0 Dehydration; F10.20 Alcohol dependence, uncomplicated
CPT/HCPCS: 36415; 71046; 80053; 83605; 83690; 83735; 84484; 85025; 85610; 85730; 86850; 86900; 86901; 93005; 96361; 96365; 96375; 99285; G0328; J0780; J2405; J3475